=== PATIENT | male | born 1935 | race Caucasian/White ===

== ENCOUNTER 2017-07-06 23:26 | Inpatient (IN) ==
[2017-07-07] MEDS ORDERED: ONDANSETRON 4 MG/2 ML VIAL IV STA (00:35)
[2017-07-07] MEDS ORDERED: PIPERACILLIN/TAZOBACTAM 3,375 MG in SODIUM CHLORIDE 0.9% 100 ML IV STA (00:35)
[2017-07-07] MEDS ORDERED: methylPREDNISolone SOD SUC 125 MG/2 ML VIAL IV STA (00:35)
[2017-07-07] MEDS ORDERED: FUROSEMIDE 100 MG/10 ML VIAL IV STA (00:35)
[2017-07-07] MEDS ORDERED: VANCOMYCIN INJ 1,250 MG in SODIUM CHLORIDE 0.9% 250 ML IV STA (00:35)
[2017-07-07] MEDS ORDERED: PIPERACILLIN/TAZOBACTAM 3,375 MG VIAL IV ONE (00:54)
[2017-07-07] MEDS ORDERED: SODIUM CHLORIDE 0.9% 100 ML IV ONE (00:55)
[2017-07-07] MEDS ORDERED: ONDANSETRON 4 MG/2 ML VIAL ONE (00:55)
[2017-07-07] MEDS ORDERED: methylPREDNISolone SOD SUC 125 MG/2 ML VIAL ONE (00:55)
[2017-07-07] MEDS ORDERED: FUROSEMIDE 40 MG/4 ML VIAL ONE (00:55)
[2017-07-07] MEDS: ALBUTEROL/IPRATROPIUM 3 ML NEB RESP TX SCH ×4 (00:56→19:05)
[2017-07-07] MEDS ORDERED: ALBUTEROL 2.5 MG/3 ML NEB RESP TX ONE (00:58)
[2017-07-07] MEDS ORDERED: ALBUTEROL 2.5 MG/3 ML NEB RESP TX SCH (01:00)
[2017-07-07 01:35] LABS: Basophils # 0.1 10*3/uL (0.0-0.2); Basophils % 0.2 % (0.0-0.8); Hematocrit 33.5 VOL% (42.0-52.0); Hemoglobin 10.3 GM/DL (14.0-18.0); Immature Granulocytes % 0.5 %; Immature Granulocytes Absolute 0.16 #; Lymphocytes # 0.4 10*3/uL (1.4-4.0); Lymphocytes % 1.3 % (21.2-54.2); Mean Corpuscular HGB Conc 30.7 GM/DL (32-36); Mean Corpuscular Hemoglobin 24 PG (27-34); Mean Corpuscular Volume 76.8 FL (87-102); Mean Platelet Volume 10.1 FL (9.6-12.0); Monocytes % 3.3 % (1.7-12.7); Neutrophils # 28.4 10*3/uL (1.4-7.4); Neutrophils % 94.7 % (38.7-73.9); Platelet Count 289 T/CUMM (130-400); Red Blood Count 4.36 MC/CUMM (3.8-5.5); Red Cell Distribution Width 18.7 % (9.3-17.3)
[2017-07-07 02:09] LABS: Albumin 3.2 G/DL (3.4-5.0); Bilirubin,Total 0.8 MG/DL (0.2-1.0); Calcium 8.6 MG/DL (8.5-10.1); Magnesium 1.6 MG/DL (1.8-2.4); Osmolality,Calculated 281.4 MOS/KG (273-304); Total Protein 6.9 G/DL (6.4-8.3)
[2017-07-07 02:12] LABS: Troponin I Only 0.054 NG/ML (0.00-0.045)
[2017-07-07] MEDS ORDERED: ONDANSETRON 4 MG/2 ML VIAL IV PRN (02:22)
[2017-07-07 02:31] LABS: Band Neutrophils 35 % (0-10); Lymphocytes 2 % (20-55); Poikilocytosis 2+; Segmented Neutrophils 57 % (50-85); Total Cells Counted 100
[2017-07-07 02:32] LABS: Anisocytosis 1+
[2017-07-07] MEDS ORDERED: PIPERACILLIN/TAZOBACTAM 3,375 MG in SODIUM CHLORIDE 0.9% 100 ML IV SCH ×2 (03:00→08:00)
[2017-07-07 03:25] LABS: Apearance,Urine CLOUDY (Clear); Bacteria,Urine Many /HPF (Few); Bilirubin,Urine Negative (Negative); Blood, Urine Small mg/dL (Negative); Glucose,Urine (UA) Negative (Negative); Ketones,Urine Negative (Negative); Mucus,Urine Few /LPF (Occasional); Nitrite,Urine Negative (Negative); Protein,Urine 100 MG/DL; RBC,Urine 105 /HPF (0-4); Urine Color Amber (Yellow); Urine Specific Gravity 1.013 (1.001-1.035); Urine Urobilinogen < 2.0 EU/DL (0.2-1.0); WBC,Urine 1775 /HPF (0-6)
[2017-07-07] MEDS: SODIUM CHLORIDE 0.9% 1,000 ML IV SCH (03:45)
[2017-07-07] MEDS ORDERED: INFLUENZA VIRUS VACCINE 0.5 ML SYRINGE IM ONE (05:00)
[2017-07-07] MEDS ORDERED: ENOXAPARIN 40 MG/0.4 ML SYRINGE SUBCUT SCH (06:00)
[2017-07-07 07:34] LABS: Basophils % 0.1 % (0.0-0.8); Hematocrit 32.4 VOL% (42.0-52.0); Hemoglobin 9.7 GM/DL (14.0-18.0); Immature Granulocytes % 1.1 %; Immature Granulocytes Absolute 0.45 #; Lymphocytes # 0.3 10*3/uL (1.4-4.0); Lymphocytes % 0.8 % (21.2-54.2); Mean Corpuscular HGB Conc 29.9 GM/DL (32-36); Mean Corpuscular Hemoglobin 23 PG (27-34); Mean Corpuscular Volume 77.9 FL (87-102); Mean Platelet Volume 10.7 FL (9.6-12.0); Monocytes # 0.8 10*3/uL (0.11-0.8); Monocytes % 1.8 % (1.7-12.7); Neutrophils % 96.2 % (38.7-73.9); Platelet Count 284 T/CUMM (130-400); Red Blood Count 4.16 MC/CUMM (3.8-5.5)
[2017-07-07 07:41] LABS: INR 3.3
[2017-07-07 07:42] LABS: PT Patient Result 32.9 SECS
[2017-07-07 07:49] LABS: White Blood Count 42.5 T/CUMM (4-12)
[2017-07-07] MEDS: LEVOFLOXACIN INJ 750 MG in PREMIX 1 EACH IV SCH (07:53)
[2017-07-07 08:10] LABS: Calcium 8.5 MG/DL (8.5-10.1); Lactic Acid 2.7 MMOL/L (0.4-2.0); Osmolality,Calculated 285.3 MOS/KG (273-304); Potassium 4.3 MMOL/L (3.5-5.1)
[2017-07-07 08:33] LABS: Band Neutrophils 9 % (0-10); Elliptocytes Few; Giant Platelets Few; Hypochromasia 1+; Lymphocytes 1 % (20-55); Platelet Estimate Adequate; Segmented Neutrophils 88 % (50-85); Total Cells Counted 100
[2017-07-07 11:40] LABS: Lactic Acid 3.7 MMOL/L (0.4-2.0)
[2017-07-07] MEDS: PIPERACILLIN/TAZOBACTAM 3,375 MG in SODIUM CHLORIDE 0.9% 100 ML IV SCH (17:30)
[2017-07-07] MEDS: risperiDONE 0.5 MG TABLET PO SCH (21:09)
[2017-07-08] MEDS: SODIUM CHLORIDE 0.9% 1,000 ML IV SCH ×3 (00:07→20:49)
[2017-07-08] MEDS: PIPERACILLIN/TAZOBACTAM 3,375 MG in SODIUM CHLORIDE 0.9% 100 ML IV SCH ×3 (00:10→16:24)
[2017-07-08 07:10] LABS: Basophils % 0.1 % (0.0-0.8); Hematocrit 26.1 VOL% (42.0-52.0); Hemoglobin 8.1 GM/DL (14.0-18.0); Immature Granulocytes Absolute 0.24 #; Lymphocytes # 0.7 10*3/uL (1.4-4.0); Lymphocytes % 3.1 % (21.2-54.2); Mean Corpuscular Hemoglobin 23 PG (27-34); Mean Corpuscular Volume 74.6 FL (87-102); Mean Platelet Volume 10.2 FL (9.6-12.0); Monocytes # 0.8 10*3/uL (0.11-0.8); Monocytes % 3.3 % (1.7-12.7); Neutrophils # 21.7 10*3/uL (1.4-7.4); Neutrophils % 92.5 % (38.7-73.9); Platelet Count 200 T/CUMM (130-400); Red Cell Distribution Width 18.6 % (9.3-17.3); White Blood Count 23.5 T/CUMM (4-12)
[2017-07-08] MEDS: LEVOFLOXACIN INJ 750 MG in PREMIX 1 EACH IV SCH (07:18)
[2017-07-08] MEDS ORDERED: INSULIN ASPART PROTAMINE/ASPART 70/30 100 UNIT/ML SUBCUT SCH (07:30)
[2017-07-08 07:31] LABS: Elliptocytes Few; Giant Platelets Few; Hypochromasia 1+; Lymphocytes 3 % (20-55); Platelet Estimate Adequate; Segmented Neutrophils 96 % (50-85); Total Cells Counted 100
[2017-07-08] MEDS: ALBUTEROL/IPRATROPIUM 3 ML NEB RESP TX SCH ×3 (07:37→20:07)
[2017-07-08 07:42] LABS: Calcium 7.8 MG/DL (8.5-10.1); Osmolality,Calculated 284.8 MOS/KG (273-304); Potassium 4.2 MMOL/L (3.5-5.1)
[2017-07-08] MEDS ORDERED: DIGOXIN 0.25 MG TABLET PO SCH (09:00)
[2017-07-08] MEDS: INSULIN LISPRO 100 UNIT/ML SUBCUT SCH ×4 (09:07→20:47)
[2017-07-08] MEDS: DONEPEZIL 10 MG TABLET PO SCH (09:32)
[2017-07-08] MEDS: ASPIRIN EC 81 MG TABLET PO SCH (09:32)
[2017-07-08] MEDS: ALLOPURINOL 300 MG TABLET PO SCH (09:32)
[2017-07-08 12:52] LABS: INR 3.7
[2017-07-08 12:53] LABS: PT Patient Result 37.5 SECS; Partial Thromboplastin Time 53.4 SECS (0-40)
[2017-07-08] MEDS ORDERED: FUROSEMIDE 40 MG/4 ML VIAL IV ONE (16:41)
[2017-07-08] MEDS: risperiDONE 0.5 MG TABLET PO SCH (20:47)
[2017-07-09] MEDS: ALBUTEROL/IPRATROPIUM 3 ML NEB RESP TX SCH ×4 (01:16→21:03)
[2017-07-09] MEDS: PIPERACILLIN/TAZOBACTAM 3,375 MG in SODIUM CHLORIDE 0.9% 100 ML IV SCH ×3 (01:17→16:57)
[2017-07-09] MEDS: LEVOFLOXACIN INJ 750 MG in PREMIX 1 EACH IV SCH (06:40)
[2017-07-09 07:01] LABS: Basophils % 0.2 % (0.0-0.8); Hemoglobin 8.7 GM/DL (14.0-18.0); Immature Granulocytes % 0.9 %; Lymphocytes # 1.4 10*3/uL (1.4-4.0); Lymphocytes % 6.3 % (21.2-54.2); Mean Corpuscular HGB Conc 32.2 GM/DL (32-36); Mean Corpuscular Hemoglobin 24 PG (27-34); Mean Corpuscular Volume 73.6 FL (87-102); Mean Platelet Volume 11.2 FL (9.6-12.0); Monocytes # 1.2 10*3/uL (0.11-0.8); Monocytes % 5.5 % (1.7-12.7); Neutrophils % 87.1 % (38.7-73.9); Platelet Count 248 T/CUMM (130-400); Red Blood Count 3.67 MC/CUMM (3.8-5.5); Red Cell Distribution Width 18.9 % (9.3-17.3); White Blood Count 21.8 T/CUMM (4-12)
[2017-07-09 07:17] LABS: INR 2.4
[2017-07-09 07:18] LABS: Partial Thromboplastin Time 44.2 SECS (0-40)
[2017-07-09 07:36] LABS: Giant Platelets Few; Hypochromasia 1+; Lymphocytes 8 % (20-55); Ovalocytes Slight; Platelet Estimate Adequate; Segmented Neutrophils 86 % (50-85); Total Cells Counted 100
[2017-07-09 07:37] LABS: Calcium 8.3 MG/DL (8.5-10.1); Magnesium 1.9 MG/DL (1.8-2.4); Osmolality,Calculated 288.4 MOS/KG (273-304); Potassium 3.7 MMOL/L (3.5-5.1)
[2017-07-09] MEDS: ALLOPURINOL 300 MG TABLET PO SCH (09:03)
[2017-07-09] MEDS: ASPIRIN EC 81 MG TABLET PO SCH (09:03)
[2017-07-09] MEDS: DONEPEZIL 10 MG TABLET PO SCH (09:03)
[2017-07-09] MEDS: INSULIN LISPRO 100 UNIT/ML SUBCUT SCH ×4 (09:56→22:31)
[2017-07-09] MEDS: SODIUM CHLORIDE 0.9% 1,000 ML IV SCH (09:56)
[2017-07-09] MEDS: VANCOMYCIN INJ 1,000 MG in SODIUM CHLORIDE 0.45% 250 ML IV SCH (14:25)
[2017-07-09] MEDS: cefTRIAXone 2,000 MG in SYRINGE 1 EACH IV SCH (17:42)
[2017-07-09] MEDS: WARFARIN 5 MG TABLET PO SCH (17:42)
[2017-07-09] MEDS: risperiDONE 0.5 MG TABLET PO SCH (22:31)
[2017-07-10] MEDS: ALBUTEROL/IPRATROPIUM 3 ML NEB RESP TX SCH ×4 (02:01→21:23)
[2017-07-10 03:34] LABS: Basophils # 0.1 10*3/uL (0.0-0.2); Basophils % 0.4 % (0.0-0.8); Eosinophils # 0.1 10*3/uL (0.0-0.87); Eosinophils % 0.5 % (0.00-10.9); Hematocrit 25.7 VOL% (42.0-52.0); Immature Granulocytes % 0.6 %; Immature Granulocytes Absolute 0.11 #; Lymphocytes # 1.6 10*3/uL (1.4-4.0); Lymphocytes % 9.1 % (21.2-54.2); Mean Corpuscular HGB Conc 31.1 GM/DL (32-36); Mean Corpuscular Hemoglobin 23 PG (27-34); Mean Corpuscular Volume 74.5 FL (87-102); Mean Platelet Volume 10.4 FL (9.6-12.0); Monocytes # 1.2 10*3/uL (0.11-0.8); Monocytes % 6.9 % (1.7-12.7); Neutrophils # 14.7 10*3/uL (1.4-7.4); Neutrophils % 82.5 % (38.7-73.9); Platelet Count 230 T/CUMM (130-400); Red Blood Count 3.45 MC/CUMM (3.8-5.5); Red Cell Distribution Width 18.5 % (9.3-17.3); White Blood Count 17.8 T/CUMM (4-12)
[2017-07-10 04:01] LABS: Calcium 8.5 MG/DL (8.5-10.1); Magnesium 1.8 MG/DL (1.8-2.4); Osmolality,Calculated 284.5 MOS/KG (273-304); Potassium 3.7 MMOL/L (3.5-5.1)
[2017-07-10] MEDS: DONEPEZIL 10 MG TABLET PO SCH (09:14)
[2017-07-10] MEDS: ALLOPURINOL 300 MG TABLET PO SCH (09:14)
[2017-07-10] MEDS: INSULIN LISPRO 100 UNIT/ML SUBCUT SCH ×4 (09:14→20:19)
[2017-07-10] MEDS: ASPIRIN EC 81 MG TABLET PO SCH (09:14)
[2017-07-10] MEDS: VANCOMYCIN INJ 1,000 MG in SODIUM CHLORIDE 0.45% 250 ML IV SCH (14:34)
[2017-07-10] MEDS: WARFARIN 5 MG TABLET PO SCH (17:58)
[2017-07-10] MEDS: cefTRIAXone 2,000 MG in SYRINGE 1 EACH IV SCH (20:19)
[2017-07-10] MEDS: risperiDONE 0.5 MG TABLET PO SCH (20:22)
[2017-07-11] MEDS: ALBUTEROL/IPRATROPIUM 3 ML NEB RESP TX SCH ×4 (01:29→19:40)
[2017-07-11 05:54] LABS: Basophils # 0.1 10*3/uL (0.0-0.2); Basophils % 0.5 % (0.0-0.8); Eosinophils # 0.2 10*3/uL (0.0-0.87); Eosinophils % 1.6 % (0.00-10.9); Hematocrit 28.9 VOL% (42.0-52.0); Hemoglobin 8.9 GM/DL (14.0-18.0); Immature Granulocytes Absolute 0.16 #; Lymphocytes # 1.3 10*3/uL (1.4-4.0); Lymphocytes % 8.6 % (21.2-54.2); Mean Corpuscular HGB Conc 30.8 GM/DL (32-36); Mean Corpuscular Hemoglobin 23 PG (27-34); Mean Corpuscular Volume 75.7 FL (87-102); Mean Platelet Volume 10.8 FL (9.6-12.0); Monocytes % 6.4 % (1.7-12.7); Neutrophils # 12.7 10*3/uL (1.4-7.4); Neutrophils % 81.9 % (38.7-73.9); Platelet Count 259 T/CUMM (130-400); Red Blood Count 3.82 MC/CUMM (3.8-5.5); Red Cell Distribution Width 18.6 % (9.3-17.3); White Blood Count 15.4 T/CUMM (4-12)
[2017-07-11 06:42] LABS: Calcium 8.8 MG/DL (8.5-10.1); Osmolality,Calculated 288.4 MOS/KG (273-304); Potassium 4.1 MMOL/L (3.5-5.1)
[2017-07-11] MEDS: DONEPEZIL 10 MG TABLET PO SCH (08:44)
[2017-07-11] MEDS: INSULIN LISPRO 100 UNIT/ML SUBCUT SCH ×4 (08:45→22:13)
[2017-07-11] MEDS: ALLOPURINOL 300 MG TABLET PO SCH (08:45)
[2017-07-11] MEDS: ASPIRIN EC 81 MG TABLET PO SCH (08:45)
[2017-07-11] MEDS: VANCOMYCIN INJ 1,000 MG in SODIUM CHLORIDE 0.45% 250 ML IV SCH (15:05)
[2017-07-11] MEDS: cefTRIAXone 2,000 MG in SYRINGE 1 EACH IV SCH (18:03)
[2017-07-11] MEDS: WARFARIN 7.5 MG TABLET PO SCH (18:03)
[2017-07-11] MEDS: risperiDONE 0.5 MG TABLET PO SCH (22:14)
[2017-07-12] MEDS: ALBUTEROL/IPRATROPIUM 3 ML NEB RESP TX SCH ×4 (00:01→19:11)
[2017-07-12 06:36] LABS: Basophils # 0.1 10*3/uL (0.0-0.2); Basophils % 0.4 % (0.0-0.8); Eosinophils # 0.4 10*3/uL (0.0-0.87); Eosinophils % 2.3 % (0.00-10.9); Hematocrit 28.4 VOL% (42.0-52.0); Hemoglobin 8.6 GM/DL (14.0-18.0); Immature Granulocytes % 0.8 %; Immature Granulocytes Absolute 0.14 #; Lymphocytes # 1.8 10*3/uL (1.4-4.0); Lymphocytes % 9.5 % (21.2-54.2); Mean Corpuscular HGB Conc 30.3 GM/DL (32-36); Mean Corpuscular Hemoglobin 23 PG (27-34); Mean Corpuscular Volume 75.9 FL (87-102); Mean Platelet Volume 10.7 FL (9.6-12.0); Monocytes # 0.9 10*3/uL (0.11-0.8); Monocytes % 4.8 % (1.7-12.7); Neutrophils # 15.2 10*3/uL (1.4-7.4); Neutrophils % 82.2 % (38.7-73.9); Platelet Count 285 T/CUMM (130-400); Red Blood Count 3.74 MC/CUMM (3.8-5.5); Red Cell Distribution Width 18.5 % (9.3-17.3); White Blood Count 18.5 T/CUMM (4-12)
[2017-07-12 07:08] LABS: Calcium 8.7 MG/DL (8.5-10.1); Osmolality,Calculated 281.5 MOS/KG (273-304); Potassium 4.1 MMOL/L (3.5-5.1)
[2017-07-12] MEDS: INSULIN LISPRO 100 UNIT/ML SUBCUT SCH ×4 (08:38→21:52)
[2017-07-12] MEDS ORDERED: VANCOMYCIN INJ 1,000 MG in SODIUM CHLORIDE 0.45% 250 ML IV SCH (09:00)
[2017-07-12] MEDS: ASPIRIN EC 81 MG TABLET PO SCH (09:12)
[2017-07-12] MEDS: ALLOPURINOL 300 MG TABLET PO SCH (09:12)
[2017-07-12] MEDS: DONEPEZIL 10 MG TABLET PO SCH (09:12)
[2017-07-12 10:24] LABS: INR 2.5; PT Patient Result 25.8 SECS; Partial Thromboplastin Time 46.1 SECS (0-40)
[2017-07-12] MEDS: VANCOMYCIN INJ 1,000 MG in SODIUM CHLORIDE 0.9% 250 ML IV SCH (13:08)
[2017-07-12] MEDS: WARFARIN 7.5 MG TABLET PO SCH (17:35)
[2017-07-12] MEDS: cefTRIAXone 2,000 MG in SYRINGE 1 EACH IV SCH (17:35)
[2017-07-12] MEDS: risperiDONE 0.5 MG TABLET PO SCH (21:53)
[2017-07-13] MEDS: ALBUTEROL/IPRATROPIUM 3 ML NEB RESP TX SCH ×4 (00:13→20:20)
[2017-07-13] MEDS: VANCOMYCIN INJ 1,000 MG in SODIUM CHLORIDE 0.9% 250 ML IV SCH ×2 (04:25→21:26)
[2017-07-13 06:36] LABS: Basophils # 0.1 10*3/uL (0.0-0.2); Basophils % 0.4 % (0.0-0.8); Eosinophils # 0.5 10*3/uL (0.0-0.87); Eosinophils % 3.1 % (0.00-10.9); Hematocrit 28.6 VOL% (42.0-52.0); Hemoglobin 8.7 GM/DL (14.0-18.0); Immature Granulocytes % 0.6 %; Lymphocytes # 1.3 10*3/uL (1.4-4.0); Lymphocytes % 7.7 % (21.2-54.2); Mean Corpuscular HGB Conc 30.4 GM/DL (32-36); Mean Corpuscular Hemoglobin 23 PG (27-34); Mean Corpuscular Volume 75.9 FL (87-102); Mean Platelet Volume 10.7 FL (9.6-12.0); Monocytes # 0.9 10*3/uL (0.11-0.8); Monocytes % 5.2 % (1.7-12.7); Neutrophils # 13.7 10*3/uL (1.4-7.4); Platelet Count 286 T/CUMM (130-400); Red Blood Count 3.77 MC/CUMM (3.8-5.5); Red Cell Distribution Width 18.5 % (9.3-17.3); White Blood Count 16.6 T/CUMM (4-12)
[2017-07-13 07:00] LABS: INR 3.8; PT Patient Result 38.3 SECS
[2017-07-13 07:05] LABS: Calcium 8.7 MG/DL (8.5-10.1); Osmolality,Calculated 281.5 MOS/KG (273-304); Potassium 4.4 MMOL/L (3.5-5.1)
[2017-07-13] MEDS: ALLOPURINOL 300 MG TABLET PO SCH (09:34)
[2017-07-13] MEDS: DONEPEZIL 10 MG TABLET PO SCH (09:34)
[2017-07-13] MEDS: ASPIRIN EC 81 MG TABLET PO SCH (09:35)
[2017-07-13] MEDS: INSULIN LISPRO 100 UNIT/ML SUBCUT SCH ×3 (11:07→16:07)
[2017-07-13] MEDS: WARFARIN 5 MG TABLET PO SCH (19:06)
[2017-07-13] MEDS: cefTRIAXone 2,000 MG in SYRINGE 1 EACH IV SCH (19:06)
[2017-07-13] MEDS: risperiDONE 0.5 MG TABLET PO SCH (21:26)
[2017-07-14] MEDS: ALBUTEROL/IPRATROPIUM 3 ML NEB RESP TX SCH ×4 (00:22→20:11)
[2017-07-14] MEDS: INSULIN LISPRO 100 UNIT/ML SUBCUT SCH ×5 (01:19→21:58)
[2017-07-14 06:44] LABS: Basophils # 0.1 10*3/uL (0.0-0.2); Basophils % 0.4 % (0.0-0.8); Eosinophils # 0.5 10*3/uL (0.0-0.87); Eosinophils % 3.5 % (0.00-10.9); Hemoglobin 8.6 GM/DL (14.0-18.0); Immature Granulocytes % 0.8 %; Immature Granulocytes Absolute 0.12 #; Lymphocytes # 1.3 10*3/uL (1.4-4.0); Lymphocytes % 8.9 % (21.2-54.2); Mean Corpuscular HGB Conc 30.7 GM/DL (32-36); Mean Corpuscular Hemoglobin 23 PG (27-34); Mean Corpuscular Volume 75.9 FL (87-102); Mean Platelet Volume 10.2 FL (9.6-12.0); Monocytes # 0.9 10*3/uL (0.11-0.8); Monocytes % 6.1 % (1.7-12.7); Neutrophils # 12.1 10*3/uL (1.4-7.4); Neutrophils % 80.3 % (38.7-73.9); Platelet Count 300 T/CUMM (130-400); Red Blood Count 3.69 MC/CUMM (3.8-5.5); Red Cell Distribution Width 18.2 % (9.3-17.3)
[2017-07-14 07:20] LABS: Calcium 8.5 MG/DL (8.5-10.1); Osmolality,Calculated 283.4 MOS/KG (273-304); Potassium 4.3 MMOL/L (3.5-5.1)
[2017-07-14] MEDS: ALLOPURINOL 300 MG TABLET PO SCH (10:57)
[2017-07-14] MEDS: DONEPEZIL 10 MG TABLET PO SCH (10:57)
[2017-07-14] MEDS: ASPIRIN EC 81 MG TABLET PO SCH (10:57)
[2017-07-14 15:03] LABS: PT Patient Result 56.2 SECS
[2017-07-14 15:05] LABS: INR 5.7
[2017-07-14] MEDS: cefTRIAXone 2,000 MG in SYRINGE 1 EACH IV SCH (19:17)
[2017-07-14] MEDS: risperiDONE 0.5 MG TABLET PO SCH (21:58)
[2017-07-15] MEDS: ALBUTEROL/IPRATROPIUM 3 ML NEB RESP TX SCH ×4 (00:31→19:46)
[2017-07-15 06:22] LABS: Basophils # 0.1 10*3/uL (0.0-0.2); Basophils % 0.4 % (0.0-0.8); Eosinophils # 0.5 10*3/uL (0.0-0.87); Eosinophils % 3.7 % (0.00-10.9); Hematocrit 27.7 VOL% (42.0-52.0); Hemoglobin 8.5 GM/DL (14.0-18.0); Immature Granulocytes Absolute 0.13 #; Lymphocytes # 1.4 10*3/uL (1.4-4.0); Lymphocytes % 10.5 % (21.2-54.2); Mean Corpuscular HGB Conc 30.7 GM/DL (32-36); Mean Corpuscular Hemoglobin 24 PG (27-34); Mean Corpuscular Volume 76.5 FL (87-102); Mean Platelet Volume 9.9 FL (9.6-12.0); Monocytes # 0.8 10*3/uL (0.11-0.8); Neutrophils # 10.3 10*3/uL (1.4-7.4); Neutrophils % 78.4 % (38.7-73.9); Platelet Count 280 T/CUMM (130-400); Red Blood Count 3.62 MC/CUMM (3.8-5.5); Red Cell Distribution Width 18.6 % (9.3-17.3); White Blood Count 13.2 T/CUMM (4-12)
[2017-07-15 07:05] LABS: Calcium 8.1 MG/DL (8.5-10.1); Osmolality,Calculated 281.4 MOS/KG (273-304); Potassium 4.1 MMOL/L (3.5-5.1)
[2017-07-15 07:19] LABS: INR 4.8
[2017-07-15 07:33] LABS: PT Patient Result 47.6 SECS; Partial Thromboplastin Time 61.2 SECS (0-40)
[2017-07-15] MEDS: INSULIN LISPRO 100 UNIT/ML SUBCUT SCH ×4 (08:34→22:03)
[2017-07-15] MEDS: DONEPEZIL 10 MG TABLET PO SCH (08:55)
[2017-07-15] MEDS: ASPIRIN EC 81 MG TABLET PO SCH (08:55)
[2017-07-15] MEDS: ALLOPURINOL 300 MG TABLET PO SCH (08:55)
[2017-07-15] MEDS: cefTRIAXone 2,000 MG in SYRINGE 1 EACH IV SCH (17:35)
[2017-07-15] MEDS: risperiDONE 0.5 MG TABLET PO SCH (22:03)
[2017-07-16] MEDS: ALBUTEROL/IPRATROPIUM 3 ML NEB RESP TX SCH ×4 (00:13→20:43)
[2017-07-16 06:43] LABS: Basophils # 0.1 10*3/uL (0.0-0.2); Basophils % 0.5 % (0.0-0.8); Eosinophils # 0.4 10*3/uL (0.0-0.87); Eosinophils % 3.3 % (0.00-10.9); Hematocrit 29.2 VOL% (42.0-52.0); Hemoglobin 8.9 GM/DL (14.0-18.0); Immature Granulocytes % 0.6 %; Immature Granulocytes Absolute 0.07 #; Lymphocytes # 1.3 10*3/uL (1.4-4.0); Lymphocytes % 11.3 % (21.2-54.2); Mean Corpuscular HGB Conc 30.5 GM/DL (32-36); Mean Corpuscular Hemoglobin 23 PG (27-34); Mean Corpuscular Volume 76.6 FL (87-102); Mean Platelet Volume 10.2 FL (9.6-12.0); Monocytes # 0.7 10*3/uL (0.11-0.8); Neutrophils # 8.7 10*3/uL (1.4-7.4); Neutrophils % 78.3 % (38.7-73.9); Platelet Count 306 T/CUMM (130-400); Red Blood Count 3.81 MC/CUMM (3.8-5.5); Red Cell Distribution Width 18.7 % (9.3-17.3); White Blood Count 11.1 T/CUMM (4-12)
[2017-07-16 06:55] LABS: INR 4.3; PT Patient Result 43.5 SECS
[2017-07-16 07:55] LABS: Basophils # 0.1 10*3/uL (0.0-0.2); Basophils % 0.5 % (0.0-0.8); Eosinophils # 0.4 10*3/uL (0.0-0.87); Eosinophils % 3.3 % (0.00-10.9); Hematocrit 29.2 VOL% (42.0-52.0); Hemoglobin 8.9 GM/DL (14.0-18.0); Immature Granulocytes % 0.6 %; Immature Granulocytes Absolute 0.07 #; Lymphocytes # 1.3 10*3/uL (1.4-4.0); Lymphocytes % 11.3 % (21.2-54.2); Mean Corpuscular HGB Conc 30.5 GM/DL (32-36); Mean Corpuscular Hemoglobin 23 PG (27-34); Mean Corpuscular Volume 76.6 FL (87-102); Mean Platelet Volume 10.2 FL (9.6-12.0); Monocytes # 0.7 10*3/uL (0.11-0.8); Neutrophils # 8.7 10*3/uL (1.4-7.4); Neutrophils % 78.3 % (38.7-73.9); Platelet Count 306 T/CUMM (130-400); Red Blood Count 3.81 MC/CUMM (3.8-5.5); Red Cell Distribution Width 18.7 % (9.3-17.3); White Blood Count 11.1 T/CUMM (4-12)
[2017-07-16 08:12] LABS: Folate 4.7 NG/ML (5.4-24.0); Vitamin B12 876 PG/ML (211-911)
[2017-07-16 09:01] LABS: Sedimentation Rate-Westergren 106 MM/HR (0-20)
[2017-07-16] MEDS: ALLOPURINOL 300 MG TABLET PO SCH (09:25)
[2017-07-16] MEDS: DONEPEZIL 10 MG TABLET PO SCH (09:25)
[2017-07-16] MEDS: ASPIRIN EC 81 MG TABLET PO SCH (09:26)
[2017-07-16] MEDS: INSULIN LISPRO 100 UNIT/ML SUBCUT SCH ×4 (09:26→21:28)
[2017-07-16] MEDS: cefTRIAXone 2,000 MG in SYRINGE 1 EACH IV SCH (17:01)
[2017-07-16] MEDS: risperiDONE 0.5 MG TABLET PO SCH (21:27)
[2017-07-17] MEDS: ALBUTEROL/IPRATROPIUM 3 ML NEB RESP TX SCH ×4 (01:59→20:26)
[2017-07-17 06:27] LABS: Basophils # 0.1 10*3/uL (0.0-0.2); Basophils % 0.7 % (0.0-0.8); Eosinophils # 0.3 10*3/uL (0.0-0.87); Eosinophils % 3.2 % (0.00-10.9); Hematocrit 27.1 VOL% (42.0-52.0); Hemoglobin 8.6 GM/DL (14.0-18.0); Immature Granulocytes % 0.6 %; Immature Granulocytes Absolute 0.06 #; Lymphocytes # 1.4 10*3/uL (1.4-4.0); Lymphocytes % 12.8 % (21.2-54.2); Mean Corpuscular HGB Conc 31.7 GM/DL (32-36); Mean Corpuscular Hemoglobin 23 PG (27-34); Mean Corpuscular Volume 73.8 FL (87-102); Mean Platelet Volume 9.5 FL (9.6-12.0); Monocytes # 0.7 10*3/uL (0.11-0.8); Monocytes % 6.5 % (1.7-12.7); Neutrophils # 8.2 10*3/uL (1.4-7.4); Neutrophils % 76.2 % (38.7-73.9); Platelet Count 254 T/CUMM (130-400); Red Blood Count 3.67 MC/CUMM (3.8-5.5); Red Cell Distribution Width 18.6 % (9.3-17.3); White Blood Count 10.7 T/CUMM (4-12)
[2017-07-17 06:39] LABS: INR 2.9
[2017-07-17 06:40] LABS: PT Patient Result 29.3 SECS
[2017-07-17 07:33] LABS: Hemoglobin A1 (Alkaline) 97.5 % (96.5-98.5); Hemoglobin A2 (Alkaline) 2.5 % (1.5-3.5)
[2017-07-17] MEDS: ASPIRIN EC 81 MG TABLET PO SCH (08:37)
[2017-07-17] MEDS: ALLOPURINOL 300 MG TABLET PO SCH (08:37)
[2017-07-17] MEDS: DONEPEZIL 10 MG TABLET PO SCH (08:37)
[2017-07-17] MEDS: INSULIN LISPRO 100 UNIT/ML SUBCUT SCH ×4 (08:38→20:31)
[2017-07-17] MEDS: WARFARIN 5 MG TABLET PO SCH (17:55)
[2017-07-17] MEDS: cefTRIAXone 2,000 MG in SYRINGE 1 EACH IV SCH (17:55)
[2017-07-17] MEDS: risperiDONE 0.5 MG TABLET PO SCH (20:31)
[2017-07-18] MEDS: ALBUTEROL/IPRATROPIUM 3 ML NEB RESP TX SCH ×3 (00:30→13:54)
[2017-07-18 06:38] LABS: INR 2.3
[2017-07-18 06:39] LABS: PT Patient Result 23.2 SECS; Partial Thromboplastin Time 47.3 SECS (0-40)
[2017-07-18] MEDS: ASPIRIN EC 81 MG TABLET PO SCH (09:59)
[2017-07-18] MEDS: DONEPEZIL 10 MG TABLET PO SCH (09:59)
[2017-07-18] MEDS: ALLOPURINOL 300 MG TABLET PO SCH (09:59)
[2017-07-18] MEDS: INSULIN LISPRO 100 UNIT/ML SUBCUT SCH ×3 (10:02→16:43)
[2017-07-18 16:38] VITALS: BP 121/49
[2017-07-18] MEDS: cefTRIAXone 2,000 MG in SYRINGE 1 EACH IV SCH (17:50)
[2017-07-18] MEDS: WARFARIN 5 MG TABLET PO SCH (17:50)
== END 2017-07-18 18:40 | disposition home or self-care (01) | DRG 871 ==
LOC: EDUNIT# → EDBD → N.ED 23:26 → N.EDINP 07-07 01:10 → SUATTDRO 07-07 01:10 → N.5E 07-07 01:29
PROVIDERS: ADMIT Internal Medicine; ATTEND Hospitalist